=== PATIENT | female | born 1975 | race Caucasian/White ===

== ENCOUNTER 2017-05-10 22:04 | Emergency (ER) | payer MEDICAID ==
[2017-05-10 22:11] VITALS: RESP 18
[2017-05-10] MEDS ORDERED: Acetaminophen-Codeine 300/30 mg Tab PO STA (22:23)
[2017-05-10] MEDS ORDERED: Acetaminophen-Codeine 300/30 mg Tab PO ONE (22:33)
--- NOTE | 2017-05-10 22:57 | C.PDOC ---
History Of Present Illness 41 year old female presents to the ER with a complaint of right upper dental pain since yesterday. Patient was seen by PMD who started her on motrin and diclofenac and penicillin, however, she states the pain still persists. Patient called Dr. Clint Gambino who referred her to the ER. Denies fever, facial swelling, or tooth discharge. Time Seen by Provider: 05/10/17 22:18 Chief Complaint (Nursing): Dental Pain History Per: Patient History/Exam Limitations: no limitations Onset/Duration Of Symptoms: Days Current Symptoms Are (Timing): Still Present Quality: Positive for: "Pain" Recent travel outside of the [place]: No Past Medical History Reviewed: Historical Data, Nursing Documentation, Vital Signs Vital Signs: Last Vital Signs Temp 98.4 F 05/10/17 23:06 Pulse 75 05/10/17 23:06 Resp 18 05/10/17 23:06 BP 124/74 05/10/17 23:06 Pulse Ox 98 05/11/17 01:08 - Medical History PMH: No Chronic Diseases Surgical History: No Surg Hx Family History: States: Unknown Family Hx - Social History Hx Alcohol Use: No Hx Substance Use: No - Immunization History Hx Tetanus Toxoid Vaccination: No Hx Influenza Vaccination: No Hx Pneumococcal Vaccination: No Review Of Systems Constitutional: Negative for: Fever ENT: Positive for: Mouth Pain. Negative for: Mouth Swelling, Throat Pain, Throat Swelling Physical Exam - Physical Exam Appears: Non-toxic, No Acute Distress Skin: Normal Color, Warm, Dry Head: Atraumatic, Normacephalic, No Swelling (Facial) Eye(s): bilateral: Normal Inspection Nose: Normal Oral Mucosa: Moist Tongue: Normal Appearing Lips: Normal Appearing Teeth: Tender To Palpation (Right upper posterior molar) Gingiva: Normal Appearing, No Erythema, No Swelling Throat: Normal, No Erythema, No Exudate Neck: Normal, Supple, No Other (swelling) Neurological/Psych: Oriented x3, Normal Speech ED Course And Treatment O2 Sat by Pulse Oximetry: 98 (room air) Pulse Ox Interpretation: Normal Progress Note: Toradol IM and tylenol with codeine administered. Patient reports improvement of pain, will discharge with instructions to follow up with dentist for further evaluation. Disposition Counseled Patient/Family Regarding: Diagnosis, Need For Followup, Rx Given - Disposition Disposition: HOME/ ROUTINE Disposition Time: 22:57 Condition: STABLE Additional Instructions: Please follow up with PMD Continue current meds Return to ER if worse Prescriptions: Acetaminophen with Codeine [Tylenol with Codeine #3 Tablet] 1 each PO PRN PRN # 10 tablet PRN Reason: Pain, Severe (8-10) Instructions: Toothache (ED) Forms: [employer] (Belgian) - Clinical Impression Clinical Impression: Pain, dental - PA / VP SECURITY / Resident Statement MD/DO has reviewed & agrees with the documentation as recorded. - Scribe Statement The provider has reviewed the documentation as recorded by the Scribjose martin Luciano All medical record entries made by the Alexandraibjose martin were at my direction and personally dictated by me. I have reviewed the chart and agree that the record accurately reflects my personal performance of the history, physical exam, medical decision making, and the department course for this patient. I have also personally directed, reviewed, and agree with the discharge instructions and disposition.
[2017-05-10 23:08] VITALS: BP 124/74; PULSE 75; TEMP 98.4
[2017-05-11 00:48] VITALS: O2SAT 98
== END 2017-05-10 23:06 | disposition home or self-care (01) ==
LOC: C.ER 22:04
DX: K08.89 Other specified disorders of teeth and supporting structures (principal)
CPT/HCPCS: 96372; 99283; J1885